=== PATIENT | male | born 1985 | race Caucasian/White ===

== ENCOUNTER 2017-01-15 09:28 | Emergency (ER) | payer BC, MEDICAID ==
[2017-01-15] MEDS ORDERED: Magnesium CITRATE* 300 ML BTL PO ONE (12:23)
[2017-01-15] MEDS ORDERED: NS 0.9% 1000 ML* 1,000 ML IV ONE (12:23)
[2017-01-15 12:41] LABS: Hematocrit 46 % (42-52); Hemoglobin 15.4 g/dl (14.0-18.0); Mean Corpuscular HGB Conc 34 g/dl (31-36); Mean Corpuscular Hemoglobin 28 pg (27-31); Mean Corpuscular Volume 83 fL (80-94); Mean Platelet Volume 9 um3 (7.4-10.4); Red Blood Count 5.47 10^6/ul (4.0-5.4); Red Cell Distribution Width 14 % (10.5-15); White Blood Count 9.8 10^3/ul (3.5-10.8)
[2017-01-15 12:51] LABS: Urine Bilirubin Negative (Negative); Urine Glucose Negative (Negative); Urine Nitrite Negative (Negative)
[2017-01-15 12:56] LABS: Albumin 4.6 g/dL (3.2-5.2); BUN/Creatinine Ratio 13.4 (8-20); Calcium 9.8 mg/dL (8.6-10.3); EGFR African American 114.6 (>60); EGFR Non-African American 89.1 (>60); Globulin 3.1 g/dL (2-4); Potassium 3.6 mmol/L (3.5-5.0); Total Bilirubin 0.5 mg/dL (0.2-1.0); Total Protein 7.7 g/dL (6.4-8.9)
--- NOTE | 2017-01-15 13:07 | RAD ---
INDICATION: Constipation and distention. COMPARISON: There are no prior studies available for comparison. TECHNIQUE: Frontal supine films of the abdomen were obtained. FINDINGS: The small bowel and colon appear nondistended. There is a moderate amount retained stool in the descending and sigmoid colon. No significant abnormal calcifications are seen. IMPRESSION: NO EVIDENCE FOR OBSTRUCTION.
[2017-01-15] MEDS ORDERED: Polyethylene Glycol 3350* 17 GM PACKET PO ONE (14:49)
[2017-01-15] MEDS ORDERED: NS 0.9% 1000 ML* 2,000 ML IV ONE (15:31)
[2017-01-15 17:00] VITALS: BP 121/68
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
== END 2017-01-15 17:00 | disposition home or self-care (01) ==
LOC: ED 09:28
DX: K59.00 Constipation, unspecified (principal); R33.9 Retention of urine, unspecified
CPT/HCPCS: 36415; 74000; 80053; 81003; 85027; 99282; A9270-GY